=== PATIENT | male | born 1975 ===

== ENCOUNTER 2024-01-18 08:40 | Day surgery (SDC) | payer OTHER, SELFPAY ==
[2024-01-18 09:09] VITALS: BP 115/86; PULSE 93; RESP 18; TEMP 36.2; O2SAT 93
--- NOTE | 2024-01-18 09:21 | PM.HP.1 ---
History of Present Illness History of Present Illness Date Patient Seen: 01/18/24 Chief complaint: Colonoscopy Narrative: First screening colonoscopy. Asymptomatic. PFSH Social History Smoking Status: Never smoker alcohol intake: current Meds Home Medications and Allergies Allergies Allergy/AdvReac Type Severity Reaction Status Date / Time No Known Drug Allergies Allergy Verified 01/18/24 09:09 Exam Vital Signs (past 8 hours): - 01/18/24 09:09 Temperature 97.2 F L Pulse Rate 93 H Respiratory Rate 18 Blood Pressure 115/86 Pulse Oximetry 93 Oxygen Delivery Method Room Air Oxygen Delivery Method Room Air Narrative Exam Narrative: Oropharynx free of lesions Chest clear to auscultation and percussion Cardiac exam reveals no S3 or murmur Assessment & Plan Assessment & Plan narrative: First screening colonoscopy. Risks, benefits, alternatives have been explained. Time-Based Coding :: [TOTAL MINUTES] spent with patient and on the chart (including review of chart, obtaining history, exam, reviewing outside data, placing orders, documenting exam and treatment plan, and counseling patient) on [DATE].
--- NOTE | 2024-01-18 09:22 | P.OP.COLON_ITS ---
Operative Date/Time/Diagnoses Date of procedure: 01/18/24 Pre-op diagnosis: See indication and findings Procedure & Clinicians Study performed: Colonoscopy Indications: Screening Surgeon: Americo Irving Procedure Notes Procedure in detail: After informed consent was obtained the patient was placed in left lateral d ecubitus position. The video colonoscope was placed the rectum slowly advanced to the cecum. Preparation was good. On slow withdrawal mucosa was carefully examined. The scope was removed. The patient tolerated procedure well. Blood loss none Complications none Sedation mac Findings 1. Normal colonoscopy to cecum Patient should have follow-up colonoscopy in 10 years.
[2024-01-18 09:52] VITALS: BP 98/65; PULSE 72; RESP 19; TEMP 36.8; O2SAT 94
[2024-01-18 09:53] VITALS: BP 106/70; PULSE 80; RESP 11; TEMP 36.6; O2SAT 96
[2024-01-18 09:58] VITALS: BP 104/80; PULSE 83; RESP 18; TEMP 36.9; O2SAT 97
== END 2024-01-18 10:18 | disposition home or self-care (01) ==
PROVIDERS: Referring Provider Internal Medicine Gastroenterology; Visit Provider Internal Medicine Gastroenterology
PROC: 0DJD8ZZ Inspection of Lower Intestinal Tract, Via Natural or Artificial Opening Endoscopic (ICD-10-PCS; CPT 45378; principal; 2024-01-18 10:00)
DX: Z12.11 Encounter for screening for malignant neoplasm of colon (principal)
CPT/HCPCS: 45378; J2704